=== PATIENT | female | born 1990 | race Caucasian/White ===

== ENCOUNTER 2021-05-23 20:41 | Emergency (ER) | payer OTHER, SELFPAY ==
[2021-05-23 20:52] VITALS: BP 157/76; PULSE 121; RESP 22; TEMP 37.6; O2SAT 99; BMI 35.9
[2021-05-23] MEDS: ONDANSETRON 4 MG ODT SL (21:05)
[2021-05-23 21:22] LABS: COVID19 -Nasal RAPID POSITIVE (Negative)
--- NOTE | 2021-05-23 22:40 | ED.GENADULT ---
HPI - General Adult General Chief complaint: Upper Respiratory Symptoms Stated complaint: FEVER COUGH NAUSEA VOMITTING Time Seen by Provider: 05/23/21 22:33 Source: patient Mode of arrival: Ambulatory History of Present Illness HPI narrative: 30-year-old female here for evaluation of several days of fever cough nausea vomiting body aches generally not feeling very well. She is COVID vaccinated. Has not received a booster shot. Has been around other individuals with similar symptoms. Related Data Allergies Allergy/AdvReac Type Severity Reaction Status Date / Time WALNUTS Allergy Unknown URTICARIA Uncoded 08/22/17 12:32 Review of Systems Constitutional Constitutional: Reports body ache(s), Reports chills, Reports fever(s) and Reports headache(s) ENT Ears, Nose, Mouth, and Throat: Reports headache(s) Respiratory Respiratory: Reports cough Gastrointestinal Gastrointestinal: Reports nausea Integumentary/Breasts Skin/Breast: Reports system reviewed and no additional complaints, except as documented Neurologic Neurologic: Reports headache(s) Hematologic/Lymphatic On Anticoagulants: No Patient History Medical History Healthy adult Social History Smoking Status: Never smoker Smoking Status: Never smoker alcohol intake frequency: 0-2 drinks per day Substance Use Type: does not use Exam Initial Vital Signs Initial Vital Signs: Vital Signs Temperature 99.7 F H 05/23/21 20:52 Pulse Rate 121 H 05/23/21 20:52 Respiratory Rate 22 05/23/21 20:52 Blood Pressure 157/76 H 05/23/21 20:52 Pulse Oximetry 99 05/23/21 20:52 HENMT Head: normal to inspection and normocephalic Resp Effort & Inspection: normal respiratory effort Cardio Rate: tachycardic Neuro General: patient alert, patient awake, patient oriented x3 and moves all extremities Extrem General: normal to inspection Psych Appearance: grossly normal Course Orders Ordered: ED Orders 05/23/21 20:58 COVID19 -Nasal swab/Pre-Proc Stat Discontinued Medications Ondansetron HCl (Ondansetron 4 Mg Odt) 4 mg SL NOW ONE Stop: 05/23/21 21:00 Last Admin: 05/23/21 21:05 Dose: 4 mg Documented by: ADRIAN Ondansetron HCl (Ondansetron 4 Mg Odt Prepack) 1 bottle MISC SEEINSTR ONE Stop: 05/23/21 22:41 Last Admin: 05/23/21 22:46 Dose: 1 bottle Documented by: CARRINGTON Vital Signs Vital signs: Vital Signs - 8 hr 05/23/21 20:52 Temperature 99.7 F H Pulse Rate 121 H Respiratory Rate 22 Blood Pressure 157/76 H Pulse Oximetry 99 Medical Decision Making Lab Data Labs: Lab Results 05/23/21 Range/Units 20:58 SARS-CoV-2 (PCR) Positive H (Negative) MDM Narrative Medical decision making narrative: Patient is positive for COVID-19 and that does explain her presenting symptoms. No respiratory distress. No indication for antibiotics. Send home with nausea medication. She was given return precautions and follow-up instructions. She expressed understanding and agreement. Discharge Plan Departure Patient Disposition: Home Clinical Impression: COVID-19 Instructions: DI for COVID-19 (Suspected or Confirmed ) Activity Restrictions/Additional Instructions: You can take the nausea medication as needed. You can take Tylenol for any fevers. Follow current CDC guidelines with regard to quarantine. Return to the emergency department for any new or worsening symptoms.
[2021-05-23] MEDS: ONDANSETRON 4 MG ODT PREPACK 1 BOTTLE MISC (22:46)
== END 2021-05-23 22:49 | disposition home or self-care (01) ==
PROVIDERS: Emergency Provider Emergency Medicine
DX: U07.1 COVID-19 (principal)
CPT/HCPCS: 87635; 99283; C9803

== ENCOUNTER → 2021-10-11 10:51 | Outpatient (CLI) | payer OTHER, SELFPAY ==
--- NOTE | 2021-10-11 10:52 | DI.US.S_ITS ---
PROCEDURE: US OB <= 14 WEEKS FETUS INDICATIONS: VIABILITY AND DATES OUTSIDE/PRIOR DATING DATA: Last menstrual period (LMP): August 11, 2020. LMP-based estimated date of delivery (BLAKE): May 18, 2022. First dating scan (date and location): October 11, 2021. Estimated date of delivery (BLAKE) from first dating scan: May 16, 2022. The calculations are made using the sonographic generated BLAKE of May 16, 2022. TECHNIQUE: Real-time scanning was performed of the fetus and maternal pelvic organs, with image documentation. Endovaginal scanning was also performed to better visualize the fetus and maternal ovaries. COMPARISON: None. FINDINGS: Embryo: Single living intrauterine gestation with estimated sonographic gestational age of approximately 9 weeks and 0 days based off crown-rump length measurement of 2.26 cm. pole and yolk sac are visualized. No definite perigestational hemorrhage noted. There is a small 6 x 5 x 6 mm cystic area noted near the area of the umbilical cord. Heart rate: 178 beats per minute. Maternal organs: Surgically absent left ovary/adnexa. Suspected right corpus luteal cyst. IMPRESSION: Single living intrauterine gestation with estimated sonographic gestational age of approximately 9 weeks and 0 days based off crown-rump length measurement. Estimated dated delivery is approximately May 16, 2022. Nonspecific 6 mm cystic region noted near the region of the cord. Recommend attention to this region on follow-up imaging. Recommend continued clinical surveillance and follow-up routine second-trimester anatomic screening survey. We strive to produce accurate, complete, and clear reports of imaging services. To assist us in improving patient care, this report was composed using standard report templates and voice recognition software. Therefore, it may contain abnormal punctuation, insertions and/or omissions. Occasional wrong-word or sound-alike substitutions may occur. Though we review the report and make efforts to correct it, we do recommend that the report be read carefully in proper context to recognize any text inaccuracies. Dictated by: Braeden Buenrostro M.D. on 10/11/2021 at 16:42 Approved by: Braeden Buenrostro M.D. on 10/11/2021 at 16:46
[2021-10-11 12:43] LABS: Add Manual Diff / Slide Review NO; Basophils Absolute Auto 0 /uL (0-100); Basophils Percent Auto 0.3 % (0-2); Eosinophils Absolute Auto 100 /uL (0-450); Eosinophils Percent Auto 1.7 % (2-4); Hematocrit 36.3 % (36-46); Hemoglobin 12.8 g/dL (12.0-16.0); Lymphocytes Absolute Auto 2100 /uL (1100-4500); Lymphocytes Percent Auto 24.3 % (25-40); Mean Corpuscular HGB Conc 35.2 % (30-36); Mean Corpuscular Hemoglobin 30.3 PG (26-34); Monocytes Absolute Auto 500 /uL (0-900); Monocytes Percent Auto 5.9 % (3-14); Neutrophils Absolute Auto 5900 /uL (1500-7000); Neutrophils Percent Auto 67.8 % (50-75); Platelet Count 303 X10^3/uL (150-400); Red Blood Cell Count 4.22 X10^6/uL (4.0-5.2); Red Cell Distribution Width 12.3 % (11.6-14.8); White Blood Cell Count 8.7 X10^3/uL (4.5-11.0)
[2021-10-11 12:46] LABS: Appearance Urine UA CLEAR; Bilirubin Urine UA NEGATIVE (NEGATIVE); Color Urine UA YELLOW; Glucose Urine UA NEGATIVE (Negative); Ketones Urine UA TRACE (NEGATIVE); Leukocyte Esterase Urine UA 2+ (NEGATIVE); Nitrite Urine UA NEGATIVE (Negative); Occult Blood Urine UA TRACE-LYSED (Negative); Protein Urine UA TRACE (Negative); Urobilinogen Urine UA 0.2 E.U./dL (0.2); pH Urine UA 5.5 (4.5-8.0)
[2021-10-11 12:58] LABS: Amorphous Sediment Urine 3+; Bacteria Urine Few (2-10); Mucus Urine 2+ (Negative); RBC Urine 0-1/HPF (0-5/HPF); Squamous Epithelial Cell Urine 10-30 /HPF (0-5/HPF); WBC Urine 5-10/HPF (0-5/HPF)
[2021-10-11 15:34] LABS: Hepatitis B Surface Antigen NEGATIVE s/c (NEGATIVE); Rubella Antibody IgG 8.4 IU/mL (>15)
[2021-10-11 15:51] LABS: HIV 1 & 2 Ab/Ag 4th Gen Combo NEGATIVE (NEGATIVE); Hep C Virus Ab w/Reflex Quant NEGATIVE s/c (NEGATIVE)
[2021-10-12 13:24] LABS: RPR Screen Non Reactive (Non Reactive); Varicella IgG Antibody 359 index (Immune >165)
== END ==
PROVIDERS: Referring Provider Obstetrics & Gynecology; Visit Provider Obstetrics & Gynecology
DX: Z34.80 Encounter for supervision of other normal pregnancy, unspecified trimester (principal); Z3A.09 9 weeks gestation of pregnancy
CPT/HCPCS: 36415; 76801; 76817; 80055; 81003; 81015; 86787; 86803; 86850; 86900; 86901; 87086; 87389

== ENCOUNTER → 2021-12-27 09:08 | Outpatient (CLI) | payer OTHER, SELFPAY ==
[2021-12-27 14:05] LABS: Urine N gonorrhoeae NOT DETECTED
[2021-12-27 14:07] LABS: Urine Chlamydia NOT DETECTED
== END ==
PROVIDERS: PCP Obstetrics & Gynecology; Visit Provider Obstetrics & Gynecology
DX: Z34.82 Encounter for supervision of other normal pregnancy, second trimester (principal); Z3A.19 19 weeks gestation of pregnancy
CPT/HCPCS: 87491; 87591

== ENCOUNTER → 2021-12-27 09:17 | Outpatient (CLI) | payer OTHER, SELFPAY ==
[2021-12-29 20:44] LABS: AFP, Serum 59.7 ng/mL (.); Estriol, Free 2.47 ng/mL (.); Inhibin A, Dimeric 112.67 pg/mL (.); Inhibin A, MoM 0.76 (.); Maternal Ethnicity Caucasian (.); Maternal Weight 194 lbs (.); Number of Fetuses No (.); OSBR Risk 1 IN 6110 (.); Results Report (.); Test Results *Screen Negative* (.); hCG, MoM 0.76 (.); hCG, Serum 16924 mIU/mL (.)
== END ==
PROVIDERS: Referring Provider Obstetrics & Gynecology; Visit Provider Obstetrics & Gynecology
DX: Z34.82 Encounter for supervision of other normal pregnancy, second trimester (principal); Z3A.19 19 weeks gestation of pregnancy
CPT/HCPCS: 36415; 82105; 82677; 84702; 86336; 87491; 87591

== ENCOUNTER → 2022-01-02 14:04 | Outpatient (CLI) | payer OTHER, SELFPAY ==
--- NOTE | 2022-01-02 14:05 | DI.US.S_ITS ---
PROCEDURE: US OB >= 14 WEEKS FETUS INDICATIONS: Anatomy scan OUTSIDE/PRIOR DATING DATA: Last menstrual period (LMP): 08/11/2021 LMP-based estimated date of delivery (BLAKE): 05/18/2022. First dating scan (date and location): 10/11/2021. Estimated date of delivery (BLAKE) from first dating scan: 05/16/2022. The calculations are made using the ultrasound BLAKE of 05/16/2022. TECHNIQUE: Real-time scanning was performed of the fetus, with image documentation and biometric measurements. COMPARISON: [facility], , OB <= 14 WEEKS FETUS, 10/11/2021, 11:25. FINDINGS: General: A single living intrauterine gestation is present. Presentation: Vertex. Placenta: Placental position is anterior, without previa. Amniotic fluid index: 11 cm, normal range is 5-24 cm. Single deepest vertical pocket is 2.9 cm. heart rate: 149 beats per minute. Maternal cervical canal: 3. 6 cm long. Normal lower limit is 2.5 cm. biometrics: Biparietal diameter: 21 weeks 6 days Head circumference: 21 weeks 5 days Abdominal circumference: 22 weeks Femur length: 23 weeks Clinically estimated gestational age: 20 weeks 4 days Composite gestational age from present scan: 22 weeks 1 day Estimated weight: 495 g Anatomic survey: Neuro: Ventricles are non-dilated at less than 10 mm. Cisterna magna is normal at 3-11 mm. Cerebellum is normal in size and morphology. Nuchal skin fold: Normal at less than 6 mm between 14-21 weeks gestational age. Face: Nose and lips, facial profile are normal. Spine: No evidence for spina bifida. Heart: 4-chambered heart is present, with normal ventricular outflow tracts. Diaphragm: Diaphragm is intact. Stomach: Left-sided stomach is present. Kidneys: No hydronephrosis. Normal is less than 5 mm in 2nd trimester, less than 7 mm in 3rd trimester. Cord: 3-vessel cord has orthotopic insertion. Bladder: Normal in size. Extremities: All 4 extremities identified. IMPRESSION: 1. Single live intrauterine consistent with a 22 week 1 day gestation by current ultrasound and 20 week 4 day gestation by dates 2. Unremarkable anatomy Approved by: Moses Cornell M.D. on 01/03/2022 at 10:24
== END ==
PROVIDERS: Referring Provider Obstetrics & Gynecology; Visit Provider Obstetrics & Gynecology
DX: Z34.92 Encounter for supervision of normal pregnancy, unspecified, second trimester (principal); Z3A.22 22 weeks gestation of pregnancy
CPT/HCPCS: 76811

== ENCOUNTER → 2022-02-10 15:15 | Outpatient (CLI) | payer OTHER, SELFPAY | PROVIDERS: Visit Provider Obstetrics & Gynecology | DX: Z34.82 Encounter for supervision of other normal pregnancy, second trimester (principal); Z3A.26 26 weeks gestation of pregnancy | CPT/HCPCS: 87086 ==

== ENCOUNTER 2022-02-27 10:23 | Outpatient (CLI) | payer OTHER, SELFPAY ==
[2022-02-27 11:37] LABS: Appearance Urine UA CLEAR; Bilirubin Urine UA NEGATIVE (NEGATIVE); Color Urine UA YELLOW; Glucose Urine UA NEGATIVE (Negative); Ketones Urine UA NEGATIVE (NEGATIVE); Leukocyte Esterase Urine UA 2+ (NEGATIVE); Nitrite Urine UA NEGATIVE (Negative); Occult Blood Urine UA NEGATIVE (Negative); Protein Urine UA NEGATIVE (Negative); Specific Gravity Urine UA <=1.005 (1.000-1.035); Urobilinogen Urine UA 0.2 E.U./dL (0.2)
--- NOTE | 2022-02-27 11:40 | P.TNLD_ITS ---
Visit Information Visit Information Date of evaluation: 02/27/22 Primary OB Provider: Dagoberto Lee On-call OB Provider: Bhargavi Velasquez Reason for Evaluation: Yes pre-term labor Comments/Additional reasons for admission: Patient is a 31 at 28 weeks and 4 days gestation coming in with concern for contractions. She has had Vera Gomes contractions intermittently for the last week but was feeling them about every 15 minutes today. Denies leaking bleeding and reports good movement. Vital Signs Vital Signs: Temperature 36.7? blood pressure 125/79 heart rate 107 PFSH Medical History Abnormal Pap smear of cervix Acid reflux (~2019) Ankle pain (~2014) Anxiety (~2013) Cervical somatic dysfunction Chicken pox (~1996) Chronic low back pain with bilateral sciatica Chronic neck pain Cranial somatic dysfunction Depression (~2013) Fibromyalgia (~2020) Foot pain (~2014) Healthy adult Ovarian cyst (~2014) Pelvic somatic dysfunction PTSD (post-traumatic stress disorder) (~2013) Sacral region somatic dysfunction Segmental and somatic dysfunction of abdomen and other regions Shoulder pain (~2014) Thoracic region somatic dysfunction Tinnitus (~2013) Surgical History Anesthesia H/O unilateral oophorectomy [place] teeth extracted Family History Unknown Cancer Mother Rheumatoid arthritis H/O thyroidectomy Cervical cancer Substance abuse Grandmother Rheumatoid arthritis Stroke H/O thyroidectomy Heart disease Grandmother Diabetes mellitus Grandfather Heart disease Hypertension Hyperlipidemia Family/Other Brain tumor Social History marital status: number of children: 0 household members: spouse lives independently: Yes housing: house pets and animals: Yes (2 dogs) education level: college (some college) occupational status: employed (active duty [employer]) current occupational exposures/hazards: No special fortunato needs: No travel history: over 6 months ago seatbelt use: always water heater temp set < 120 deg: No working smoke detector in home: Yes fire extinguisher in home: No carbon monox detector in home: Yes firearms in home: No do you feel safe at home: Yes Smoking Status: Never smoker second hand exposure: No alcohol intake: former substance use type: does not use during the past year weight has: other (weight has been fluctuating quite a bit) well-balanced diet: daily or most days daily servings fruits/ve-4 caffeine: Yes Type(s) of exercise: swimming Evaluation Evaluation Baseline heart rate: 130 Variability: Moderate (11-25) monitor accelerations: Present Monitor Decelerations: Absent Category of Tracing: Reactive Diagnosis, Plan/Disposition Final Diagnosis (1) 28 weeks gestation of : Status: Acute (2) Vera Gomes' contraction: Status: Acute (3) UTI (urinary tract infection): Status: Acute Plan/Disposition Plan: 31 at 28 weeks and 4 days with concern for contractions and labor. NST reactive. [place] did not mixing picker tender any contractions though patient reported 5 in an hour. Per RN, contractions were not palpable. UA was completed and suspicious for UTI. She was started on nitrofurantoin. Will follow-up results of urine culture. Follow-up as scheduled with Dr. Lee a return sooner if needed. OB Disposition: home
[2022-02-27 11:53] LABS: Bacteria Urine Many (>30); Culture Indicated Urine Specimen Cultured; RBC Urine None Seen (0-5/HPF); Squamous Epithelial Cell Urine 5-10 /HPF (0-5/HPF); WBC Urine 10-30/HPF (0-5/HPF)
== END 2022-02-27 12:06 | disposition home or self-care (01) ==
LOC: LABOR 11:59 → OB 03-02 11:25
PROVIDERS: Obstetrics & Gynecology; Referring Provider Obstetrics & Gynecology; Visit Provider Obstetrics & Gynecology
DX: O47.03 False labor before 37 completed weeks of gestation, third trimester (principal); O23.43 Unspecified infection of urinary tract in pregnancy, third trimester; N39.0 Urinary tract infection, site not specified; Z3A.28 28 weeks gestation of pregnancy
CPT/HCPCS: 59025; 81001; 87086; G0378; G0379

== ENCOUNTER → 2022-02-28 07:04 | Outpatient (CLI) | payer OTHER, SELFPAY ==
[2022-02-28 09:03] LABS: Glucose Fasting Gestational 88 mg/dL (76-95)
[2022-02-28 10:39] LABS: Glucose Tol Interp,Gestational INTERPRETATION
[2022-02-28 10:49] LABS: Glucose 1 Hour Gest 185 mg/dL (76-180)
[2022-02-28 10:49] LABS: Glucose 2 Hour Gest 143 mg/dL (76-155)
[2022-02-28 12:55] LABS: Glucose 3 Hour Gest 105 mg/dL (76-140)
== END ==
PROVIDERS: Referring Provider Obstetrics & Gynecology; Visit Provider Obstetrics & Gynecology
DX: R73.09 Other abnormal glucose (principal)
CPT/HCPCS: 82951; 82952

== ENCOUNTER → 2022-03-07 08:22 | Outpatient (CLI) | payer OTHER, SELFPAY ==
--- NOTE | 2022-03-07 16:38 | DIAB.GDA ---
Initial Gestational Diabetes Assessment Name: Elizabeth Rodriguez Date: 03/07/22 Time: 176-539a Dx: Gestational Diabetes Provider: Jesus BLAKE: 05/18/22 Weeks: 30 Elizabeth presents today for initial visit. States her diagnosis is mostly a result of one elevated OGTT result and LGA concerns. No h/o GDM. FH + DM with paternal grandma. Currently taking Metformin as rx'd at 500 mg BID. States she did have one episode of feeling lightheaded in the middle of the night. This was after having no carbs at dinner, just chicken wings. States she is wondering if she should d/c Metformin. Not enough SMBG data to determine, but she is not having any hypoglycemia per log book. Encouraged her to keep checking BG and discuss with provider. She agreed. Endorses sometimes waking in the middle of the night for a snack. This may be r/t long periods of time without eating during the day and into the night (5+ hours during day and 13-14 hours overnight). had second hip replacement r/t RA completed today. States his hip pain, inability to walk/stand, and now recovery has been a challenge during her . She is happy he has completed both replacements so that he can help more after baby is here. She is having a boy! Diet Recall: 730a: croissant or yogurt with granola or fig bar or 4 coby crackers 10a: leftovers: 2c pasta with meat sauce or chicken wings 12-1p: leftovers again 5-6p: quesadilla with sour cream or steak, potatoes x 1c and asparagus Anthropometrics: Ht: 61 Wt: 206# (02/28/22) Prepregnancy wt: 196# Physical Activity: No program. None that she prefers. Stage of change precontemplative. Self-Monitoring Blood Glucose: Checking FBG and 2 hr pc. No elevations. One reading of 73 mg/dL and 80 mg/dL potentially r/t low carb intake. Date Pre Post Pre Post Pre Post HS 02/12 89 105 80 chicken wings 03/05 81 73 115 03/06 82 102 102 03/07 111 Diabetes Medications: Metformin 500mg BID Pertinent Labs: OGTT: 88, 185H, 143, 105 Nutrition Rx: Carbohydrates: Daily: 180-195g Meal: 45-60g lunch and dinner; 30g breakfast Snack: 15-30g Nutrition Diagnosis: Altered nutrition related lab value r/t GDM dx aeb recent OGTT Inconsistent CHO intake r/t nutrition knowledge deficit aeb diet recall and SMBG Physical inactivity r/t stage of change aeb pt report Predicted inadequate fiber intake r/t nutrition knowledge deficit, limited veggie and whole grains aeb diet recall and pt report Intervention: This participant was very receptive. Provided appropriate educational handouts. Discussed the following topics: GDM pathophysiology and impact of hyperglycemia on mom and baby Risk for T2DM for mom and baby in the future Ways to reduce risk T2DM Plate Method, meal timing, carb counting, pairing macronutrients and spreading out CHO for better BG management Easy meal planning she can do on her own Blood glucose goals (FBG: <95 and 1 hour 110-140 mg/dL or 2 hour 100-120 mg/dL); importance of checking 4x per day (FBG and pc) Impact of macronutrients on blood glucose Recommended servings for carbohydrates at meals and snacks Brainstormed appropriate meal plan based on her food preferences Role of physical activity and following provider guidelines for safety Goals: Check BG 4x per day office support associate veggie steamers Pair carbs and protein Follow-up: THIAGO HOLT follow-up in 1.5 week Deja Parrish RDN, YANET Certified Diabetes Care and Commutator Tester T: [phone] F: [phone] [email or web address] Thank you for this referral
== END ==
PROVIDERS: Referring Provider Obstetrics & Gynecology; Visit Provider Obstetrics & Gynecology
DX: O24.415 Gestational diabetes mellitus in pregnancy, controlled by oral hypoglycemic drugs (principal); Z3A.30 30 weeks gestation of pregnancy; Z71.3 Dietary counseling and surveillance
CPT/HCPCS: 97802

== ENCOUNTER → 2022-03-14 14:01 | Outpatient (CLI) | payer OTHER, SELFPAY | PROVIDERS: Referring Provider Obstetrics & Gynecology; Visit Provider Obstetrics & Gynecology | DX: O26.899 Other specified pregnancy related conditions, unspecified trimester (principal); Z67.91 Unspecified blood type, Rh negative; Z3A.30 30 weeks gestation of pregnancy | CPT/HCPCS: 36415; 86850 ==

== ENCOUNTER → 2022-03-17 11:02 | Outpatient (CLI) | payer OTHER, SELFPAY ==
--- NOTE | 2022-03-17 14:24 | DIAB.GDFU ---
Follow-up Gestational Diabetes Assessment Name: Elizabeth Rodriguez Date: 03/17/22 Time: a Dx: Gestational Diabetes Provider: Jesus BLAKE: 05/18/22 Weeks: 31 Elizabeth presents for follow-up. States she has had well managed BG, but her diet has been a challenge. home recovering from hip replacement and she has been caring for him. Has not been able to go grocery shopping. Does not like grocery curbside supervisor opening and picking. States she has been eating takeout quite a bit recently. Overall her eating schedule has been unpredictable. States she could not even provide an accurate diet recall today. Some elevated BG after high carb intake, ie tanzanian toast filled with raspberry. Reports some meals are very small and feels she cannot eat due to nausea. Other meals seem high in kcal/CHO based on description. Will have one random soda to relieve nausea, does not like any other carbonated beverages. She goes back to work next week and anticipates eating and overall life to be back to usual. Anthropometrics: Ht: 61 Wt: 210# 03/14/22 at OB (+2# since previous visit) Prepregnancy wt: 196# Physical Activity: No program. None that she prefers. Stage of change precontemplative. Self-Monitoring Blood Glucose: Checking FBG and 2 hr pc. All FBG in goal. A few pc elevations r/t higher carb intake, ie Samoan fast food, tanzanian toast. Date Pre Post Pre Post Pre Post HS 03/11 82 132 93 03/12 83 115 98 03/13 79 112 109 03/14 84 132 1.5h 119 129 03/15 89 128 88 96 03/16 84 93 103 85 emesis prior 03/17 89 Diabetes Medications: Metformin 500mg BID Pertinent Labs: OGTT: 88, 185H, 143, 105 Nutrition Rx: Carbohydrates: Daily: 180-195g Meal: 45-60g lunch and dinner; 30g breakfast Snack: 15-30g Nutrition Diagnosis: Altered nutrition related lab value r/t GDM dx aeb recent OGTT Predicted excessive CHO intake r/t takeout choices aeb pt report Physical inactivity r/t stage of change aeb pt report Predicted inadequate fiber intake r/t nutrition knowledge deficit, limited veggie and whole grains aeb diet recall and pt report Intervention: This participant was very receptive. Provided appropriate educational handouts. Discussed the following topics: Recent blood sugar results and impact of food and hormones Discussed current barriers to meal plan, grocery shopping, etc Potential strategies for grocery shopping Goals: Check BG 4x per day-met supervisor photostat veggie steamers- in progress Pair carbs and protein - met Follow-up: THIAGO HOLT follow-up in two weeks. Elizabeth seems to have a lot going on at home with caring for her . She did not want to set further goals today. States she feels things will be back to usual next week. Will continue to evaluate. Deja Parrish RDN, [facility] Certified Diabetes Care and Boatswains Mate T: [phone] F: [phone] [email or web address] Thank you for this referral
== END ==
PROVIDERS: Referring Provider Obstetrics & Gynecology; Visit Provider Obstetrics & Gynecology
DX: O24.415 Gestational diabetes mellitus in pregnancy, controlled by oral hypoglycemic drugs (principal); Z3A.31 31 weeks gestation of pregnancy; Z71.3 Dietary counseling and surveillance
CPT/HCPCS: 97803

== ENCOUNTER → 2022-03-31 14:35 | Outpatient (CLI) | payer OTHER, SELFPAY ==
--- NOTE | 2022-03-31 14:42 | DIAB.GDFU ---
Follow-up Gestational Diabetes Assessment Name: Elizabeth Rodriguez Date: 03/31/22 Time: 245-315p Dx: Gestational Diabetes Provider: Jesus BLAKE: 05/18/22 Weeks: 33 Elizabeth presents for follow-up. Reports she has not been taking HS Metformin dose due to acidic reflux at night. FBG continue in goal without this dose. Encouraged her to chat with OB further about this, d/c HS dose? switch to ER? States she still has not gone grocery shopping. This increases takeout and limits nutrition dense foods at home, ie vegetables. States her still recovering and she has been busy with classes, which ended today. Hoping to go grocery shopping tomorrow. States she does not have much energy to cook. Meals need to be easy to prepare. Recently found a sparkling water she enjoys and can sub for soda. cut out soda completely. Thinking about making more soups. Anthropometrics: Ht: 61 Wt: 211.4# today ; 210# 03/14/22 at OB Prepregnancy wt: 196# Physical Activity: No program. None that she prefers. Stage of change precontemplative. Self-Monitoring Blood Glucose: Checking FBG and 2 hr pc. Most FBG in goal. Only FBG elevations are not true fastings d/t snacking in late morning. Missing recent dinner readings due to falling asleep prior to 2 hour check. 08/22 elevated pc readings due to high carb intake, ie marroquin with potatoes and rice or quesadilla or two meal replacement bars (90g CHO). Date Pre Post Pre Post Pre Post HS 03/25 102 6 hr after snack 111 108 03/26 88 102 03/27 88 113 123 128 03/28 108 2hr after snack 98 147 03/29 79 107 03/30 79 90 03/31 89 129 Diabetes Medications: 500mg Metformin BID (only taking 1x per day) Pertinent Labs: OGTT: 88, 185H, 143, 105 Nutrition Rx: Carbohydrates: Daily: 180-195g Meal: 45-60g lunch and dinner; 30g breakfast Snack: 15-30g Nutrition Diagnosis: Altered nutrition related lab value r/t GDM dx aeb recent OGTT Predicted excessive CHO intake r/t takeout choices aeb pt report - in progress Physical inactivity r/t stage of change aeb pt report- in progress Predicted inadequate fiber intake r/t nutrition knowledge deficit, limited veggie and whole grains aeb diet recall and pt report - in progress Self monitoring deficit r/t not checking 4 x per day consistently aeb pt BG log - new Intervention: This participant was very receptive. Provided appropriate educational handouts. Discussed the following topics: Recent blood sugar results and impact of food Importance of 4x per day SMBG Encouraged 1 hour checks if she feels she will fall asleep before 2 hour Discussed 1 vs 2 hour SMBG goals CHO intake associated with hyperglycemia easy to prep veggie ideas Goals: set up mold technician veggie steamers- in progress make broccoli soup Can check 1 hour pc prn Go grocery shopping tomorrow set up mold technician easy prep veggies Follow-up: THIAGO HOLT follow-up in 2-3 weeks. Plans to see OB Sunday. Encouraged more SMBG for review. Deja Parrish RDN, YANET Certified Diabetes Care and Coal And [employer] Supervisor T: [phone] F: [phone] [email or web address] Thank you for this referral
== END ==
PROVIDERS: Referring Provider Obstetrics & Gynecology; Visit Provider Obstetrics & Gynecology
DX: O24.415 Gestational diabetes mellitus in pregnancy, controlled by oral hypoglycemic drugs (principal); Z3A.33 33 weeks gestation of pregnancy; Z71.3 Dietary counseling and surveillance
CPT/HCPCS: 97803

== ENCOUNTER → 2022-04-04 12:41 | Outpatient (CLI) | payer OTHER, SELFPAY | PROVIDERS: Visit Provider Obstetrics & Gynecology | DX: R35.0 Frequency of micturition (principal) | CPT/HCPCS: 87086 ==

== ENCOUNTER 2022-04-17 19:34 | Observation (INO) | payer OTHER, SELFPAY ==
[2022-04-17 19:56] VITALS: BP 138/82
[2022-04-17 21:50] LABS: Appearance Urine UA CLEAR; Bilirubin Urine UA NEGATIVE (NEGATIVE); Color Urine UA YELLOW; Glucose Urine UA NEGATIVE (Negative); Ketones Urine UA 2+ (NEGATIVE); Nitrite Urine UA NEGATIVE (Negative); Occult Blood Urine UA NEGATIVE (Negative); Protein Urine UA NEGATIVE (Negative); Specific Gravity Urine UA <=1.005 (1.000-1.035); Urobilinogen Urine UA 0.2 E.U./dL (0.2)
[2022-04-17 21:53] LABS: Leukocyte Esterase Urine UA NEGATIVE (NEGATIVE)
[2022-04-17 23:50] LABS: Strep Grp B PCR NEG for Grp B Strep
--- NOTE | 2022-04-17 23:50 | P.TNLD_ITS ---
Visit Information Visit Information Date of evaluation: 04/17/22 Primary OB Provider: Dagoberto Lee On-call OB Provider: Jennie Palm Reason for Evaluation: Yes pre-term labor Comments/Additional reasons for admission: 31YO @ [id number] here for evaluation of contractions. Contractions began 3 hours before arrival and have increased in frequency and intensity, currently able to walk and talk through them. No vaginal bleeding or leaking of fluid. Routine care with and next appointment is scheduled for tomorrow. Vital Signs Vital Signs: Vital Signs - 8 hr 04/17/22 19:56 Blood Pressure 138/82 HR 108, T37.2C Temporal [facility] Medical History (Updated 04/18/22 @ 00:04 by Jennie Palm CNM) Abnormal Pap smear of cervix Acid reflux (~2019) Ankle pain (~2014) Anxiety (~2013) Bilateral knee pain Cervical somatic dysfunction Chicken pox (~1996) Chronic low back pain with bilateral sciatica Chronic neck pain Cranial somatic dysfunction Depression (~2013) Fibromyalgia (~2020) Foot pain (~2014) Healthy adult Iliotibial band syndrome of both sides Lumbar region somatic dysfunction Ovarian cyst (~2014) Pelvic somatic dysfunction PTSD (post-traumatic stress disorder) (~2013) Sacral region somatic dysfunction Segmental and somatic dysfunction of abdomen and other regions Shoulder pain (~2014) Somatic dysfunction of lower extremity Thoracic region somatic dysfunction Tinnitus (~2013) Surgical History Anesthesia H/O unilateral oophorectomy [facility] [place] teeth extracted Family History Unknown Cancer Mother Rheumatoid arthritis H/O thyroidectomy Cervical cancer Substance abuse Grandmother Rheumatoid arthritis Stroke H/O thyroidectomy Heart disease Grandmother Diabetes mellitus Grandfather Heart disease Hypertension Hyperlipidemia Family/Other Brain tumor Social History marital status: number of children: 0 household members: spouse lives independently: Yes housing: house pets and animals: Yes (2 dogs) education level: college occupational status: employed current occupational exposures/hazards: No special fortunato needs: No travel history: over 6 months ago seatbelt use: always water heater temp set < 120 deg: No working smoke detector in home: Yes fire extinguisher in home: No carbon monox detector in home: Yes firearms in home: No do you feel safe at home: Yes Smoking Status: Never smoker second hand exposure: No alcohol intake: former substance use type: does not use during the past year weight has: other well-balanced diet: daily or most days daily servings fruits/ve-4 caffeine: Yes Type(s) of exercise: swimming Review of Systems Review of Systems ROS: Yes All systems reviewed with the patient and are negative except as otherwise documented Exam Vital Signs (past 8 hours): - 04/17/22 19:56 Blood Pressure 138/82 see above Presentation: vertex Objective Labs Labs: Laboratory Results - last 24 hr 04/17/22 20:00 Urine Color Yellow Urine Appearance Clear Urine pH 6.0 Ur Specific [place] <=1.005 Urine Protein Negative Urine Glucose (UA) Negative Urine Ketones 2+ H Urine Occult Blood Negative Urine Nitrate Negative Urine Bilirubin Negative Urine Urobilinogen 0.2 Ur Leukocyte Esterase Negative GBS PCR- Negative Evaluation Evaluation Baseline heart rate: 130 Variability: Moderate (11-25) monitor accelerations: Present Monitor Decelerations: Absent Contraction Frequency (minutes): 4 Uterine Contraction Intensity: Mild Category of Tracing: Reactive Status: Category l Cervical dilation (cm): 1 Cervical effacement (%): 75 station: -2 Comments: No cervical change after 3 hours of monitoring Diagnosis, Plan/Disposition Final Diagnosis (1) False labor before 37 completed weeks of gestation: Status: Acute Plan/Disposition Plan: Discharge to home with routine labor precautions. Ecouraged her to call if contractions strengthen. Follow-up in clinic as previously scheduled. OB Disposition: home
[2022-04-17 23:52] VITALS: BP 138/82
== END 2022-04-17 23:52 | disposition home or self-care (01) ==
LOC: LABOR 19:37
PROVIDERS: Admitting Provider Nurse Practitioner Obstetrics & Gynecology; Referring Provider Nurse Practitioner Obstetrics & Gynecology; Visit Provider Nurse Practitioner Obstetrics & Gynecology
DX: O47.03 False labor before 37 completed weeks of gestation, third trimester (principal); Z3A.35 35 weeks gestation of pregnancy
CPT/HCPCS: 59025; 59050; 81003; 87081; 87653; G0378; G0379

== ENCOUNTER → 2022-04-19 09:28 | Outpatient (CLI) | payer OTHER, SELFPAY ==
--- NOTE | 2022-04-19 16:22 | DIAB.GDFU ---
Follow-up Gestational Diabetes Assessment Name: Elizabeth Rodriguez Date: 04/19/22 Time: 373-335g Dx: Gestational Diabetes Provider: Jesus BLAKE: 05/18/22 Weeks: 36 Elizabeth presents for follow-up virtually using [employer] platform. Reports continued nauseas/emesis with Metformin in evening. Reports it can feel like ?severe acid reflux?. Also has some symptoms with morning dose but not as severe. States OB encouraged Metformin dose in afternoon instead of evening. States she did not notice a difference. BG continue in goal despite reduced dose currently. Has gone grocery store as discussed last visit. States eating out quite a bit still. States her refrigerator broke last week. Waiting for landlord to help. Still avoiding soda. Reports discomfort at night, keeping he up. Reports limited appetite with how baby is moving. Also endorses potentially was sick on/off since . Feels these impact her sleep and eating schedule. Per BG log, she notes quite a few days of low PO at meals. back to work this week. Anthropometrics: Ht: 61 Wt: 212# yesterday with OB visit. Despite lower PO, wt seems consistent. No weight loss. Prepregnancy wt: 196# Physical Activity: No program. None that she prefers. Stage of change precontemplative. Self-Monitoring Blood Glucose: Checking FBG and 2 hr pc. FBG all in goal, range 75-89 this week. 2 hr pc all <120 mg/dl but one reading with dessert of 124 mg/dL. Otherwise 88-118mg/dl this week. Some pc readings <120 due to low PO. Diabetes Medications: 500mg Metformin BID (only taking 1x per day) Pertinent Labs: OGTT: 88, 185H, 143, 105 Nutrition Rx: Carbohydrates: Daily: 180-195g Meal: 45-60g lunch and dinner; 30g breakfast Snack: 15-30g Nutrition Diagnosis: Altered nutrition related lab value r/t GDM dx aeb recent OGTT Self monitoring deficit r/t not checking 4 x per day consistently aeb pt BG log - improved Inconsistent energy intake r/t feeling unwell aeb food log and pt report - new Intervention: This participant was very receptive. Provided appropriate educational handouts. Discussed the following topics: Recent blood sugar results and impact of food and hormones Review ways to improve intake when feeling unwell Benefits, resources, and nutrition for recommendations for nutrition and physical activity recommendations for T2DM risk reduction OGTT at 6-12 weeks Option to check blood sugars twice per week (goal: fasting <100 mg/dL and 2 hour pc <140 mg/dL) until 6 week check-up HgA1c q 1-3 years. Reflux MNT Goals: make broccoli soup- met Can check 1 hour pc prn- continue Go grocery shopping tomorrow- met caser up easy prep veggies - not discussed Try smoothie ideas when feeling unwell- new OGTT 6-12 weeks and HgA1c q 1-3 years- new Follow-up: THIAGO HOLT follow-up prn. Overall, Elizabeth's BG are well managed. Her energy intake has decreased. Encouraged easy to digest options. Encouraged her to call with any questions or follow-up needs. She agreed to this plan. Deja Parrish RDN, YANET Certified Diabetes Care and [employer] Se[employer] Operator [employer] T: [phone] F: [phone] [email or web address] Thank you for this referral
== END ==
PROVIDERS: Referring Provider Obstetrics & Gynecology; Visit Provider Obstetrics & Gynecology
DX: O24.415 Gestational diabetes mellitus in pregnancy, controlled by oral hypoglycemic drugs (principal); Z3A.36 36 weeks gestation of pregnancy; Z71.3 Dietary counseling and surveillance
CPT/HCPCS: 97803

== ENCOUNTER 2022-04-25 15:58 | Outpatient (CLI) | payer OTHER, SELFPAY ==
--- NOTE | 2022-04-25 16:59 | PM.OBTRLD ---
Visit Information Visit Information Date of evaluation: 04/25/22 Primary OB Provider: Dagoberto Lee Reason for Evaluation: Yes non-stress test Comments/Additional reasons for admission: 36+5 weeks EGA, gestational diabetes, macrosomia Vital Signs Vital Signs: BP: 123/71 P: 102 T: 36.9C [facility] Medical History (Updated 04/25/22 @ 16:30 by Dagoberto Lee MD) Abnormal Pap smear of cervix Acid reflux (~2019) Ankle pain (~2014) Anxiety (~2013) Bilateral knee pain Cervical somatic dysfunction Chicken pox (~1996) Chronic low back pain with bilateral sciatica Chronic neck pain Cranial somatic dysfunction Depression (~2013) Fibromyalgia (~2020) Foot pain (~2014) Healthy adult Iliotibial band syndrome of both sides Lumbar region somatic dysfunction Ovarian cyst (~2014) Pelvic somatic dysfunction PTSD (post-traumatic stress disorder) (~2013) Sacral region somatic dysfunction Segmental and somatic dysfunction of abdomen and other regions Shoulder pain (~2014) Somatic dysfunction of lower extremity Thoracic region somatic dysfunction Tinnitus (~2013) Surgical History Anesthesia H/O unilateral oophorectomy [place] teeth extracted Family History Unknown Cancer Mother Rheumatoid arthritis H/O thyroidectomy Cervical cancer Substance abuse Grandmother Rheumatoid arthritis Stroke H/O thyroidectomy Heart disease Grandmother Diabetes mellitus Grandfather Heart disease Hypertension Hyperlipidemia Family/Other Brain tumor Social History marital status: number of children: 0 household members: spouse lives independently: Yes housing: house pets and animals: Yes (2 dogs) education level: college occupational status: employed current occupational exposures/hazards: No special fortunato needs: No travel history: over 6 months ago seatbelt use: always water heater temp set < 120 deg: No working smoke detector in home: Yes fire extinguisher in home: No carbon monox detector in home: Yes firearms in home: No do you feel safe at home: Yes Smoking Status: Never smoker second hand exposure: No alcohol intake: former substance use type: does not use during the past year weight has: other well-balanced diet: daily or most days daily servings fruits/ve-4 caffeine: Yes Type(s) of exercise: swimming Evaluation Evaluation Baseline heart rate: 35 Variability: Moderate (11-25) monitor accelerations: Present Monitor Decelerations: Episodic (Isolated deceleration from 135 - 115 x unassociated w/ctx; patient states baby rolled over) Category of Tracing: Reactive Status: Category l Comments: TATY = 14.0 by bedside US. Grade 2 placenta. Diagnosis, Plan/Disposition Plan/Disposition Plan: Weekly NST's w/ TATY. Follow-up RITU appointment 05/02, growth US 05/03/2022, and admit for induction on the evening of 05/03 for cervical ripening and induction 05/04 at 38+0 weeks EGA. Labor precautions, kick counts. OB Disposition: home
== END 2022-04-25 17:00 | disposition home or self-care (01) ==
LOC: LABOR 17:25 → OB 04-27 16:09
PROVIDERS: Referring Provider Obstetrics & Gynecology; Visit Provider Obstetrics & Gynecology
DX: O24.415 Gestational diabetes mellitus in pregnancy, controlled by oral hypoglycemic drugs (principal); O36.63X0 Maternal care for excessive fetal growth, third trimester, not applicable or unspecified; Z3A.36 36 weeks gestation of pregnancy
CPT/HCPCS: 59025; 76815; G0378; G0379

== ENCOUNTER 2022-04-26 20:12 | Observation (INO) | payer OTHER, SELFPAY ==
[2022-04-27 00:07] VITALS: BP 135/78; PULSE 99; RESP 20; TEMP 36.7
== END 2022-04-27 00:07 | disposition home or self-care (01) ==
LOC: LABOR 20:16
PROVIDERS: Admitting Provider Obstetrics & Gynecology; Referring Provider Obstetrics & Gynecology; Visit Provider Obstetrics & Gynecology
DX: Z03.71 Encounter for suspected problem with amniotic cavity and membrane ruled out (principal); O47.03 False labor before 37 completed weeks of gestation, third trimester; Z3A.36 36 weeks gestation of pregnancy
CPT/HCPCS: 59025; 59050; 84112; G0378; G0379

== ENCOUNTER 2022-05-02 11:14 | Outpatient (CLI) | payer OTHER, SELFPAY | END 2022-05-02 12:18 | disposition home or self-care (01) | LOC: LABOR 11:26 → OB 05-10 09:05 | PROVIDERS: Referring Provider Obstetrics & Gynecology; Visit Provider Obstetrics & Gynecology | DX: O24.415 Gestational diabetes mellitus in pregnancy, controlled by oral hypoglycemic drugs (principal); Z3A.37 37 weeks gestation of pregnancy | CPT/HCPCS: 59025; G0378; G0379 ==

== ENCOUNTER 2022-05-03 19:11 | Inpatient (IN) | payer OTHER, SELFPAY ==
[2022-05-03 19:48] VITALS: BP 132/75
--- NOTE | 2022-05-03 20:31 | P.HPOB_ITS ---
OB HPI Date/Time Date of admission: 05/03/22 Date Patient Seen: 05/04/22 Time Patient Seen: 07:00 History of Present Condition Chief complaint: observation of labor : 2 Para: 0 Estimated Date of Delivery: 05/18/22 Estimated Gestational Age (weeks): 37+6 Narrative: Elizabeth Rodriguez is a 31 year old , BLAKE 05/18/2022 admitted now at 37+6 wks EGA for induction due to GDMA2 and associated macrosomia. Infant has been known to be large since the 20 week anatomy scan with her most recent growth US 05/03/2022 showing an EFW of 4246 gms. (9.4 lbs.). Patient had an elevated 1 hr. GDM screen with only a single elevated level on her 3 hr. GTT but due to developing macrosomia, she was placed on an ADA diet, started on Metformin 500 mg BID, and she's monitored her BS's at home which have been well controlled but despite these interventions, the infant has continued to be macrosomic with the most recent EFW in the 99th %'tile. Antepartum testing has been reassuring and GBS is negative. Also complicating her , she is Rh negative and morbidly obese. Indications Indication for induction OB: gestational diabetes History of Present care: good care Dating criteria: LMP confirmed by 1st trimester US Ultrasounds: normal 1st trimester US, normal mid trimester US and abnormal US findings (Macrosomia) Preadmission Labs Blood type: A (-) negative -: Antibody screen: negative, GBS status: negative, HBsAG: negative, HIV: negative and RPR/VDLR: negative -: Chlamydia screen: not detected and Gonorrhea screen: not detected -: Rubella: not immune and Varicella: immune HCT: 36.3 HCAB: negative PAP: Normal Quad screen: Normal 1 hr GTT: 158 3 hr GTT: 1 hr (185), 2 hr (143) and 3 hr (105) Fasting blood glucose: 88 Prior (ies) History: SAB x 1 Evaluation Evaluation Dilation (cm): 2 Effacement (%): 75 Dilation: 1-2 cm Effacement: 60-70% station: -2 Position of cervix: mid Consistency: medium Gandhi score: 6 [facility] Medical History (Updated 05/02/22 @ 11:19 by Dagoberto Lee MD) Abnormal Pap smear of cervix Acid reflux (~2019) Ankle pain (~2014) Anxiety (~2013) Bilateral knee pain Cervical somatic dysfunction Chicken pox (~1996) Chronic low back pain with bilateral sciatica Chronic neck pain Cranial somatic dysfunction Depression (~2013) Fibromyalgia (~2020) Foot pain (~2014) Healthy adult Iliotibial band syndrome of both sides Lumbar region somatic dysfunction Ovarian cyst (~2014) Pelvic somatic dysfunction PTSD (post-traumatic stress disorder) (~2013) Sacral region somatic dysfunction Segmental and somatic dysfunction of abdomen and other regions Shoulder pain (~2014) Somatic dysfunction of lower extremity Thoracic region somatic dysfunction Tinnitus (~2013) Surgical History Anesthesia H/O unilateral oophorectomy [place] teeth extracted Family History Unknown Cancer Mother Rheumatoid arthritis H/O thyroidectomy Cervical cancer Substance abuse Grandmother Rheumatoid arthritis Stroke H/O thyroidectomy Heart disease Grandmother Diabetes mellitus Grandfather Heart disease Hypertension Hyperlipidemia Family/Other Brain tumor Social History marital status: number of children: 0 household members: spouse lives independently: Yes housing: house pets and animals: Yes (2 dogs) education level: college occupational status: employed current occupational exposures/hazards: No special fortunato needs: No travel history: over 6 months ago seatbelt use: always water heater temp set < 120 deg: No working smoke detector in home: Yes fire extinguisher in home: No carbon monox detector in home: Yes firearms in home: No do you feel safe at home: Yes Smoking Status: Never smoker second hand exposure: No alcohol intake: former substance use type: does not use during the past year weight has: other well-balanced diet: daily or most days daily servings fruits/ve-4 caffeine: Yes Type(s) of exercise: swimming Meds Home Medications and Allergies Home Medications Medication Instructions Recorded Confirmed Type doxylamine succinate 25 mg tablet 25 mg PO BEDTIME PRN Insomnia 09/22/21 05/03/22 History (Unisom (doxylamine)) prenat.vits,nichelle,ehc-hani-hmchh 1 tab PO DAILY #30 tabs 10/18/21 05/03/22 Rx blood sugar diagnostic (Blood #100 ea 02/28/22 05/03/22 Rx Glucose Test strips) blood-glucose meter #1 ea 02/28/22 05/03/22 Rx lancets #100 ea 02/28/22 05/03/22 Rx metformin 500 mg tablet 500 mg PO BIDWMEAL #60 tabs 02/28/22 05/03/22 Rx omeprazole 40 mg capsule,delayed 40 mg PO DAILY 04/26/22 05/03/22 History release Allergies Allergy/AdvReac Type Severity Reaction Status Date / Time WALNUTS Allergy Unknown URTICARIA Uncoded 05/02/22 10:47 Review of Systems Review of Systems Narrative: Problem-specific ROS positives included in HPI OB Exam HENMT Head: normal to inspection, normocephalic and atraumatic Eyes General: appearance normal, both eyes and all related structures Resp Effort & Inspection: normal respiratory effort and able to speak in complete sentences Auscultation: clear to auscultation bilaterally Cardio Rate: regular rate Rhythm: regular rhythm Heart Sounds: S1 normal, S2 normal and no murmurs Extremities Lower extremity: Yes normal to inspection GI Inspection: normal to inspection Palpation: Yes soft and Yes no hepatosplenomegaly Uterus Location (Fundal Height): 38 Estimated Weight (lbs): 9 Objective Labs Result Diagrams: 05/03/22 21:15 Assessment and Plan Assessment and Plan Assessment and Plan narrative: ASSESSMENT 1. Intrauterine , 37+6 wks EGA 2. macrosomia 3. Gestational diabetes, Type A2 4. GBS negative status PLAN 1. Admit for ripening/induction 2. See admission orders Time Spent with Patient Total time spent with greater than 50% in coordination of care (as documented) at patient's floor/unit and/or counseling patient:: 15-24 minutes
[2022-05-03 21:42] LABS: Add Manual Diff / Slide Review NO; Basophils Absolute Auto 100 /uL (0-100); Basophils Percent Auto 0.9 % (0-2); Eosinophils Absolute Auto 100 /uL (0-450); Eosinophils Percent Auto 1.4 % (2-4); Hematocrit 31.6 % (36-46); Hemoglobin 10.7 g/dL (12.0-16.0); Lymphocytes Absolute Auto 1600 /uL (1100-4500); Mean Corpuscular HGB Conc 33.8 % (30-36); Mean Corpuscular Hemoglobin 29.3 PG (26-34); Mean Corpuscular Volume 86.4 fL (80-100); Monocytes Absolute Auto 400 /uL (0-900); Monocytes Percent Auto 4.8 % (3-14); Neutrophils Absolute Auto 6700 /uL (1500-7000); Neutrophils Percent Auto 74.9 % (50-75); Platelet Count 320 X10^3/uL (150-400); Red Blood Cell Count 3.66 X10^6/uL (4.0-5.2); Red Cell Distribution Width 13.2 % (11.6-14.8); White Blood Cell Count 8.9 X10^3/uL (4.5-11.0)
[2022-05-03 22:11] LABS: COVID19 -Nasal RAPID Negative (Negative)
[2022-05-03] MEDS: miSOPROStoL 100 MCG TABLET 50 MCG PO (22:14)
[2022-05-03] MEDS: ZOLPIDEM 5 MG TABLET PO (22:23)
[2022-05-04] MEDS: ACETAMINOPHEN 325 MG TABLET 650 MG PO ×3 (02:22→23:57)
[2022-05-04] MEDS: METFORMIN HCL 500 MG TABLET PO (08:50)
[2022-05-04] MEDS: miSOPROStoL 100 MCG TABLET 50 MCG PO (09:34)
--- NOTE | 2022-05-04 17:45 | PM.OBPNLAB ---
Date/Time Date Patient Seen: 05/04/22 Time Patient Seen: 17:45 Pain Control Pain control: tolerating well Pelvic Exam Dilation (cm): 3 Effacement (%): 85 station: -1 Amniotic membrane status: Intact Contractions Contractions on admission: none Monitor mode: External Contraction pattern: Irregular Contraction phase: Resting Contraction intensity: Mild Status status: Category l Heart Rate Baseline: 145 Monitor Accelerations: Present Monitor Decelerations: Absent Monitor Variability: Moderate Assessment and Plan Plan: begin patient augmentation Comments: Gandhi score significantly more favorable and will initiate pitocin augmentation.
[2022-05-04] MEDS: LACTATED RINGERS 1,000 ML 100 ML IV (17:56)
[2022-05-04] MEDS: OXYTOCIN PREMIX 30 UNIT/500 ML PLAST..BAG IV (18:03)
[2022-05-04] MEDS: DERMOPLAST SPRAY 20% 60 ML 1 SPRAY TOP (19:44)
--- NOTE | 2022-05-04 20:48 | PM.OBPNLAB ---
Date/Time Date Patient Seen: 05/04/22 Time Patient Seen: 20:49 Pain Control Pain control: tolerating well Comments: She is having considerable hemorrhoid pain and requesting relief. Has tried sitz baths and Preparation-H at home. She is feeling contractions and rates pain 2/10. Hemorrhoids are more uncomfortable than contractions. Baby is active, no leaking or bleeding. Pelvic Exam Amniotic membrane status: Intact Contractions Monitor mode: External Pitocin rate (mU/min): 8 Contraction frequency (min): 3 Contraction pattern: Regular Contraction phase: Resting Contraction intensity: Mild Status status: Category l Heart Rate Baseline: 130 Monitor Accelerations: Present Monitor Decelerations: Absent Monitor Variability: Moderate Assessment and Plan Assessment: induction ongoing Plan: continuous present management Comments: 31 year old at 38 weeks gestation undergoing induction for GDMA2 and macrosomia, now on pitocin. SVE deferred as she is not yet painful with contractions. She is having hemorrhoid pain which has been ongoing throughout her . Plan Continue pitocin titration Epidural upon request Recommended a bath for hemorrhoid pain and topical lidocaine if desired
[2022-05-04] MEDS: LIDOCAINE/PRILOCAINE 5 GM TOP (21:50)
[2022-05-05] MEDS: LACTATED RINGERS 1,000 ML 100 ML IV ×3 (03:18→15:21)
[2022-05-05] MEDS: ACETAMINOPHEN 325 MG TABLET 650 MG PO ×2 (07:35→19:50)
[2022-05-05] MEDS: LIDOCAINE 5% OINT 35 GM 1 APPLIC TOP (08:19)
--- NOTE | 2022-05-05 08:58 | PM.OBPNLAB ---
Date/Time Date Patient Seen: 05/05/22 Time Patient Seen: 08:59 Pain Control Pain control: tolerating well Pelvic Exam Dilation (cm): 4 Effacement (%): 95 station: -1 Amniotic membrane status: Intact Contractions Contractions on admission: none Monitor mode: External Pitocin rate (mU/min): 20 Contraction frequency (min): 3 Contraction pattern: Regular Contraction phase: Resting Contraction intensity: Moderate Status status: Category l Heart Rate Baseline: 145 Monitor Accelerations: Present Monitor Decelerations: Absent Monitor Variability: Moderate Comments: AROM performed 0855, clear fluid Assessment and Plan Assessment: induction ongoing Plan: continuous present management Comments: OK for FLORECITA if/when requested.
[2022-05-05] MEDS: fentaNYL 100 MCG/2 ML INJ 50 MCG IV (09:57)
[2022-05-05] MEDS: ONDANSETRON 4 MG/2 ML INJ 8 MG IV ×2 (09:59→15:34)
[2022-05-05] MEDS: FENT 2MCG/ML BUPIV 0.125% EPI 200 MCG/100 ML PLAST..BAG 6 MCG EPIDURAL (11:05)
[2022-05-05] MEDS: OXYTOCIN PREMIX 30 UNIT/500 ML PLAST..BAG 200 UNIT IV (18:01)
--- NOTE | 2022-05-05 18:17 | PM.OBPRVD ---
Events: Gestational Diabetes, Labor Induction and Other (Macrosomia) Labor & Delivery Delivery date: 05/05/22 Intrapartal Events: None Cervical ripening method: per misoprostal protocol Induction method: per pitocin protocol Delivery augmentation: rupture of membranes Delivery monitor: external FHT and external uterine Route of delivery: Episiotomy description: None L&D Laceration Description: Perineal - 2nd Degree Delivery repair: chromic Estimated blood loss (mL): 350 Anesthesia Type: Epidural and Local Complications: None Narrative: Following a 2 hour and 6 minute 2nd stage, the patient delivered successfully via spontaneous vaginal a viable male infant over an intact perineum. No shoulder dystocia was encountered and there was no cord entanglement. Skin to skin contact was initiated immediately and delayed cord clamping performed. When the umbilical cord was doubly clamped and cut, umbilical cord blood samples and an 8 in segment of umbilical cord banking per patient request. Additional cord blood was obtained for routine studies. The placenta delivered spontaneously with gentle cord traction and suprapubic countertraction. The placenta was seen to be intact with a small succenturiate lobe which was also intact. IV Pitocin was administered and uterine bleeding declined nicely. Inspection of the perineum, introitus, and vaginal trivedi showed a midline second-degree perineal laceration which was repaired under epidural with local anesthesia adjunct using 2 strands of 2-0 chromic catgut suture in the usual manner. At the completion of the delivery process both mother and baby were doing well. Baby 1: Infant gender: Male Presentation: vertex Position: Left Occiput Anterior Placenta delivery description: Spontaneous and Expressed Cord Vessel Description: 3 Vessels score (1 min): 8 score (5 min): 9 weight: 8 lb 5.23 oz Plan for aftercare: Routine care and Other
[2022-05-05] MEDS: IBUPROFEN 600 MG TABLET PO (21:01)
[2022-05-05] MEDS: DOCUSATE 100 MG CAPSULE PO (21:01)
[2022-05-06] MEDS: ACETAMINOPHEN 325 MG TABLET 650 MG PO ×4 (02:16→20:58)
[2022-05-06] MEDS: IBUPROFEN 600 MG TABLET PO ×4 (02:16→20:58)
[2022-05-06] MEDS: DOCUSATE 100 MG CAPSULE PO ×2 (08:29→20:58)
[2022-05-06] MEDS: OXYCODONE IR 5 MG TABLET PO ×2 (09:23→22:55)
[2022-05-06] MEDS: ONDANSETRON 4 MG/2 ML INJ 8 MG IV ×3 (09:24→22:53)
[2022-05-06 18:07] LABS: Add Manual Diff / Slide Review NO; Basophils Absolute Auto 0 /uL (0-100); Basophils Percent Auto 0.1 % (0-2); Eosinophils Absolute Auto 100 /uL (0-450); Eosinophils Percent Auto 1.1 % (2-4); Hematocrit 26.3 % (36-46); Hemoglobin 8.9 g/dL (12.0-16.0); Lymphocytes Absolute Auto 1300 /uL (1100-4500); Lymphocytes Percent Auto 12.4 % (25-40); Mean Corpuscular HGB Conc 33.8 % (30-36); Mean Corpuscular Hemoglobin 29.1 PG (26-34); Mean Corpuscular Volume 86.2 fL (80-100); Monocytes Absolute Auto 600 /uL (0-900); Monocytes Percent Auto 5.4 % (3-14); Neutrophils Absolute Auto 8700 /uL (1500-7000); Platelet Count 243 X10^3/uL (150-400); Red Blood Cell Count 3.05 X10^6/uL (4.0-5.2); White Blood Cell Count 10.7 X10^3/uL (4.5-11.0)
--- NOTE | 2022-05-06 19:20 | PM.PN.1 ---
Subjective Subjective Date Patient Seen: 05/06/22 Time Patient Seen: 15:00 Interval history: Doing well overnight. No ongoing issues. Mother and baby are doing well. Exam Const General: cooperative and comfortable Nutritional Appearance: average body habitus Orientation: alert and oriented x3 HENMT Head: normal to inspection, atraumatic and abrasion Ears: hearing grossly normal bilaterally Face and sinus: face symmetric Eyes General: appearance normal, both eyes and all related structures Conjunctivae: conjunctivae normal Sclera: sclerae normal EOM: EOM intact bilaterally Neck Neck: normal visual inspection Resp Effort & Inspection: normal respiratory effort and able to speak in complete sentences GI Inspection: normal to inspection Palpation: soft and no hepatosplenomegaly External Female Exam: other (No significant bleeding noted) Extrem General: no calf tenderness Psych Appearance: grossly normal Mental Status: mental status grossly normal Speech and Movement: speech and movement normal Mood: congruent mood Affect: normal affect Attitude: cooperative Thought Process: normal Thought Content: normal Judgment: judgment good Objective Labs Result Diagrams: 05/06/22 18:00 Labs: Laboratory Results - last 24 hr 05/06/22 05/06/22 07:18 18:00 WBC 10.7 RBC 3.05 L Hgb 8.9 L Hct 26.3 L MCV 86.2 MCH 29.1 MCHC 33.8 RDW 13.0 Plt Count 243 Neut % (Auto) 81.0 H Lymph % (Auto) 12.4 L [place] % (Auto) 5.4 Eos % (Auto) 1.1 L Baso % (Auto) 0.1 Neut # (Auto) 8700 H Lymph # (Auto) 1300 [place] # (Auto) 600 Eos # (Auto) 100 Baso # (Auto) 0 Maternal Bleed Negative [facility] Medical History (Updated 05/02/22 @ 11:19 by Dagoberto Lee MD) Abnormal Pap smear of cervix Acid reflux (~2019) Ankle pain (~2014) Anxiety (~2013) Bilateral knee pain Cervical somatic dysfunction Chicken pox (~1996) Chronic low back pain with bilateral sciatica Chronic neck pain Cranial somatic dysfunction Depression (~2013) Fibromyalgia (~2020) Foot pain (~2014) Healthy adult Iliotibial band syndrome of both sides Lumbar region somatic dysfunction Ovarian cyst (~2014) Pelvic somatic dysfunction PTSD (post-traumatic stress disorder) (~2013) Sacral region somatic dysfunction Segmental and somatic dysfunction of abdomen and other regions Shoulder pain (~2014) Somatic dysfunction of lower extremity Thoracic region somatic dysfunction Tinnitus (~2013) Surgical History Anesthesia H/O unilateral oophorectomy [place] teeth extracted Family History Unknown Cancer Mother Rheumatoid arthritis H/O thyroidectomy Cervical cancer Substance abuse Grandmother Rheumatoid arthritis Stroke H/O thyroidectomy Heart disease Grandmother Diabetes mellitus Grandfather Heart disease Hypertension Hyperlipidemia Family/Other Brain tumor Social History marital status: number of children: 0 household members: spouse lives independently: Yes housing: house pets and animals: Yes (2 dogs) education level: college occupational status: employed current occupational exposures/hazards: No special fortunato needs: No travel history: over 6 months ago seatbelt use: always water heater temp set < 120 deg: No working smoke detector in home: Yes fire extinguisher in home: No carbon monox detector in home: Yes firearms in home: No do you feel safe at home: Yes Smoking Status: Never smoker second hand exposure: No alcohol intake: former substance use type: does not use during the past year weight has: other well-balanced diet: daily or most days daily servings fruits/ve-4 caffeine: Yes Type(s) of exercise: swimming Assessment & Plan Assessment and plan (1) Macrosomia affecting management of mother in third trimester, single gestation: Status: Acute (2) Rh negative state in antepartum period: Status: Acute Assessment & Plan narrative: Routine PP care. Time Spent With Patient Time with patient: less than 30 minutes Critical Care time: I spent a total of [] minutes of critical care time on this patient's care today; this time is exclusive of procedural time.
[2022-05-07] MEDS: OXYCODONE IR 5 MG TABLET PO (04:33)
[2022-05-07] MEDS: ONDANSETRON 4 MG/2 ML INJ 8 MG IV (04:33)
[2022-05-07] MEDS: ACETAMINOPHEN 325 MG TABLET 650 MG PO ×2 (04:34→10:08)
[2022-05-07] MEDS: IBUPROFEN 600 MG TABLET PO ×2 (04:34→10:09)
--- NOTE | 2022-05-07 09:44 | P.DS_ITS ---
Discharge Providers Provider Date of admission: 05/05/22 17:31 Discharge Date: 05/07/22 Primary care physician: Radha FRANKEL Provider Consults: 05/03/22 20:19 Consult to Anesthesiology Urgent Comment: Consulting Provider: Dagoberto Lee Reason for consultation: FLORECITA placement in labor Has provider been notified: No 05/06/22 18:14 Consult to [employer] Routine Comment: Discharge provider: Dagoberto Lee MD Summary Hospital Course Date Patient Seen: 05/07/22 Time Patient Seen: 09:44 Diagnoses: Intrauterine gestation, 38+ 1 weeks gestational age, delivered by vaginal Gestational diabetes, type A2 Anemia, chronic Hemorrhoids Hospital Course: Emma was admitted of 05/03/2020 due for cervical ripening/induction at 37+ 6 weeks gestational age due to gestational diabetes type A2. Cervical ripening was accomplished with oral Cytotec and on the evening of 05/04/2022 patient was initiated on Pitocin induction. She progressed well, had an epidural placed, and on the evening of 05/05/2022 delivered a viable male infant with Apgars of 8/9 and a weight of 8 lb 5.23 oz. patient's sustained second-degree perineal laceration was repaired in the usual manner. Following delivery the patient and have both done extremely well with the mother experiencing prompt return of and bladder function, she is remained afebrile and normotensive, is ambulating independently, tolerating regular diet, and her pain is well relief with oral pain medications. She will be discharged at this time to home after counseling regarding precautionary symptoms, limitations activity, medications, and plans for follow-up will be 6 weeks. Medications at time discharge will include resumption preadmission medications with the exception of metformin which be discontinued, and she will discharged also with ibuprofen 600 mg p.o. q.6 hours as needed pain, oxycodone 5 mg p.o. Q to 6 hours as needed pain, ondansetron 8 mg tabs p.o. Q 8 hours as needed for nausea and vomiting, lidocaine/prilocaine ointment, and 5% lidocaine ointment for hemorrhoidal pain. Peripartum Data Delivery Method: Natural Vaginal Laceration Description: Perineal - 2nd Degree Episiotomy description: None complications: none 1: Gender: Male Disposition of : home Discharge Diagnosis (1) Macrosomia affecting management of mother in third trimester, single gestation: Status: Acute (2) Rh negative state in antepartum period: Status: Acute Status at Discharge Cognitive/behavioral status at discharge: oriented Functional status at discharge: independent ambulation Overall status at discharge: patient is progressing back to baseline Time Spent with Patient Time attestation: Total time spent providing and/or coordinating discharge services: Time spent: Less than 30 minutes Objective Labs Result Diagrams: 05/06/22 18:00 Labs: Laboratory Results - last 24 hr 05/06/22 05/06/22 07:18 18:00 WBC 10.7 RBC 3.05 L Hgb 8.9 L Hct 26.3 L MCV 86.2 MCH 29.1 MCHC 33.8 RDW 13.0 Plt Count 243 Neut % (Auto) 81.0 H Lymph % (Auto) 12.4 L [place] % (Auto) 5.4 Eos % (Auto) 1.1 L Baso % (Auto) 0.1 Neut # (Auto) 8700 H Lymph # (Auto) 1300 [place] # (Auto) 600 Eos # (Auto) 100 Baso # (Auto) 0 Maternal Bleed Negative Exam Const General: cooperative and comfortable Nutritional Appearance: average body habitus Orientation: alert and oriented x3 HENMT Head: normal to inspection, atraumatic and abrasion Ears: hearing grossly normal bilaterally Face and sinus: face symmetric Eyes General: appearance normal, both eyes and all related structures Conjunctivae: conjunctivae normal Sclera: sclerae normal EOM: EOM intact bilaterally Neck Neck: normal visual inspection Resp Effort & Inspection: normal respiratory effort and able to speak in complete sentences GI Inspection: normal to inspection Palpation: soft, no hepatosplenomegaly and mass (Firm, minimally tender fundus, U -6) External Female Exam: other (No significant bleeding noted) Extrem General: no calf tenderness Psych Appearance: grossly normal Mental Status: mental status grossly normal Speech and Movement: speech and movement normal Mood: congruent mood Affect: normal affect Attitude: cooperative Thought Process: normal Thought Content: normal Judgment: judgment good Discharge Plan Discharge Plan Patient Disposition: Home Provider Discharge Comment: Please review the written instructions you received when you were discharged from the hospital. Your follow-up appointment will need to be scheduled for 6 weeks following her delivery and I look forward to seeing you then. If in the meanwhile however you have any issues, concerns, or problems, please contact me either through the office phone at [phone], or via the patient portal. Discharge orders & Medications Prescriptions: New docusate sodium 100 mg Capsule 100 mg PO BID Qty: 60 3RF ibuprofen 600 mg Tablet 600 mg PO Q6HR PRN (Reason: Pain, Mild (1-3)) Qty: 60 2RF oxycodone 5 mg Tablet 5 mg PO Q4HR PRN (Reason: Pain, Moderate (4-6)) Qty: 20 0RF lidocaine 5 % ointment 1 applic topical TID PRN (Reason: pain) Qty: 50 2RF lidocaine-prilocaine 2.5-2.5 % cream See Rx Instructions .ROUTE .COMPLEX Qty: 30 2RF Rx Instructions: Apply topically BID-TID PRN hemorrhoidal pain ondansetron HCl 8 mg tablet 8 mg PO Q8H PRN (Reason: nausea and vomiting) Qty: 30 1RF Continued Unisom (doxylamine) 25 mg tablet 25 mg PO BEDTIME PRN (Reason: Insomnia) prenat.vits,nichelle,ukn-cqtf-fijeh Tablet 1 tab PO DAILY Qty: 30 12RF omeprazole 40 mg Capsule,Delayed Release(Dr/Ec) 40 mg PO DAILY Discontinued metformin 500 mg tablet 500 mg PO BIDWMEAL Qty: 60 6RF No Action (DME) blood-glucose meter Misc See Rx Instructions .ROUTE .MEDSUPPLY Qty: 1 0RF Rx Instructions: Use to check blood sugar 4 x daily and record on log sheet. (DME) lancets Misc See Rx Instructions .Route Qty: 100 2RF Rx Instructions: As directed (DME) Blood Glucose Test Strip See Rx Instructions .Route Qty: 100 2RF Rx Instructions: As directed Follow up/Referrals: ProviderRadha [Primary Care Provider] - Discharge Health Status Multidrug resistant organism: No MDRO Diet/Activity/Treatments Diet: Diet as Tolerated Activity: As tolerated Other treatments: [id number] Tylenol may also be used for additional pain relief. MiraLax may also be used for additional relief of constipation. [id number] hemorrhoidal medications such as Preparation H may also be used as needed. Skin/Wound/Dressing Care Report to your healthcare provider any signs of infection, such as:: chills, fever, increased pain, unusual drainage and unusual redness Dressing: N/A Visit Report/Discharge Packet Instructions: DI for Labor and Delivery, Vaginal , DI for and Nipple Soreness, DI for Prescription Opioid Use Stand Alone Forms: Discharge: Care Discharge Data Primary Care Provider: Radha Cee
[2022-05-07] MEDS: FAMOTIDINE 20 MG TABLET 40 MG PO (10:09)
[2022-05-07] MEDS: DOCUSATE 100 MG CAPSULE PO (10:09)
[2022-05-07] MEDS: RHO(D) IMMUNE GLOBULIN 1,500 UNIT SYRINGE 1500 UNIT IM (10:16)
== END 2022-05-07 11:50 | disposition home or self-care (01) | DRG 807 ==
PROVIDERS: Admitting Provider Obstetrics & Gynecology; Referring Provider Obstetrics & Gynecology; Visit Provider Obstetrics & Gynecology
DX: O24.425 Gestational diabetes mellitus in childbirth, controlled by oral hypoglycemic drugs (principal); Z37.0 Single live birth; O36.63X0 Maternal care for excessive fetal growth, third trimester, not applicable or unspecified; Z3A.37 37 weeks gestation of pregnancy; O70.1 Second degree perineal laceration during delivery; Z67.11 Type A blood, Rh negative; Z20.822 Contact with and (suspected) exposure to COVID-19
CPT/HCPCS: 36415; 59050; 59200; 59400; 85025; 85461; 86850; 86900; 86901; 87635; C9803; G0378; A9270; G0379; J2405; J2590; J2790; J3010